=== PATIENT | male | born 2000 | race Hispanic/Latino ===

== ENCOUNTER 2023-08-16 21:48 | Emergency (ER) | payer BC ==
[2023-08-16 23:07] LABS: ALT (SGPT) 20 U/L (8-55); AST (SGOT) 20 U/L (5-34); Albumin 4.6 g/dL (3.5-5.0); Alkaline Phosphatase 71 U/L (50-130); Anion Gap 16 mmol/L (10-20); BUN (Urea Nitrogen) 18 mg/dL (8.9-20.6); Bilirubin, Total 0.4 mg/dL (0.2-1.2); Calc. Creatinine Clearance 0 mL/min (70-130); Calcium 9.7 mg/dL (7.8-10.44); Carbon Dioxide 24 mmol/L (22-29); Chloride 102 mmol/L (98-107); Estimated GFR 116; Globulin 3.4 g/dL (2.4-3.5); Glucose 88 mg/dL (70-105); Potassium 3.9 mmol/L (3.5-5.1); Sodium 138 mmol/L (136-145)
[2023-08-16 23:13] LABS: Troponin I Less than 0.010 ng/mL (< 0.028)
[2023-08-16 23:18] LABS: #Basophils 0.1 10x3/uL (0.0-0.2); #Eosinphils 1.1 10x3/uL (0.0-0.5); #Monocytes 0.8 10x3/uL (0.0-1.1); %Basophils 1.3 % (0.0-2.0); %Eosinophils 10.7 % (0.0-6.0); %Lymphocytes 31.2 % (18.0-47.0); %Monocytes 7.6 % (0.0-10.0); %Neutrophils 48.9 % (40.0-75.0); Hematocrit 46.4 % (38.8-50.0); Hemoglobin 15.8 g/dL (13.5-17.5); Mean Corpuscular HGB CONC 34.1 g/dL (32.0-36.0); Mean Corpuscular Hemoglobin 29.7 pg (27.0-33.0); Mean Corpuscular Volume 87.2 fl (81.2-95.1); Mean Platelet Volume 9.5 fl (7.4-10.4); Platelet Count 325 10x3/uL (150-450); RBC Distribution Width 12.9 % (11.5-14.5); Red Blood Cell (RBC) Count 5.32 10x6/uL (4.32-5.72); White Blood Cell (WBC) Count 10.3 10x3/uL (3.5-10.5)
[2023-08-16 23:27] LABS: SARS-CoV-2 NAA Rapid Test Not Detected (NotDetected)
[2023-08-16 23:30] LABS: Lipase 16 U/L (8-78); Magnesium 1.9 mg/dL (1.7-2.2)
== END 2023-08-17 01:57 | disposition home or self-care (01) ==
LOC: CSHERS 21:48
DX: R00.2 Palpitations (principal); R50.9 Fever, unspecified
CPT/HCPCS: 36415; 71046; 80053; 83690; 83735; 83880; 84484; 85025; 93005